=== PATIENT | male | born 1985 | race Two or more races ===

== ENCOUNTER 2020-08-19 15:12 | Emergency (ER) | payer OTHER ==
[~2020-08-19] VITALS: Ht 177.8 cm; Wt 98.0 kg
[2020-08-19] MEDS ORDERED: VANCOMYCIN 1 G PREMIX 200 ML IV SCH (16:15)
[2020-08-19 17:08] LABS: BASOPHILS % 0.5 % (0.0-2.0); EOSINOPHILS % 0.2 % (0.0-5.0); HEMATOCRIT. 38.3 % (42.0-52.0); HEMOGLOBIN. 13.2 g/dL (14.0-18.0); LYMPHOCYTES % 25.3 % (20.0-50.0); MEAN CORPUSCULAR HEMOGLOBIN 29.3 pg (28.0-32.0); MEAN CORPUSCULAR VOLUME 85.2 fL (80.0-94.0); MEAN PLATELET VOLUME 6.5 fl (7.4-10.4); MONOCYTES % 5.5 % (2.0-8.0); NEUTROPHILS % 68.5 % (40.0-76.0); PLATELET 221 x1000/uL (130-400); RED CELL DISTRIBUTION WIDTH 13.7 % (11.6-14.6)
[2020-08-19 17:10] LABS: CHLORIDE 104 mEq/L (98-107)
[2020-08-19] MEDS: AMPICILLIN SOD/SULBACTAM NA 1.5 G in SODIUM CHLORIDE 0.9% 50 ML IV SCH ×2 (19:32→23:41)
[2020-08-19] MEDS ORDERED: TETANUS, DIPHTHERIA, PERTUSSIS VAC/PF 0.5ML (>7YR OLD) IM ONE (22:30)
[2020-08-20] MEDS ORDERED: DIVALPROEX SODIUM 500MG DR TABLET PO ONE
[2020-08-20] MEDS: AMPICILLIN SOD/SULBACTAM NA 1.5 G in SODIUM CHLORIDE 0.9% 50 ML IV SCH ×3 (04:29→13:30)
[2020-08-20] MEDS: METOPROLOL TARTRATE 50MG TABLET PO SCH (09:52)
[2020-08-20] MEDS: VANCOMYCIN 1 G PREMIX 200 ML IV SCH (18:09)
[2020-08-21] MEDS ORDERED: KETOROLAC 30MG/ML VIAL IV STA (00:14)
[2020-08-21] MEDS: VANCOMYCIN 1 G PREMIX 200 ML IV SCH ×3 (01:00→17:07)
[2020-08-21] MEDS: AMPICILLIN SOD/SULBACTAM NA 1.5 G in SODIUM CHLORIDE 0.9% 50 ML IV SCH ×4 (02:00→20:00)
[2020-08-21] MEDS: METOPROLOL TARTRATE 50MG TABLET PO SCH (08:01)
[2020-08-21] MEDS ORDERED: DIVA500T3 MT (16:59)
[2020-08-21] MEDS ORDERED: LABETALOL 5MG/ML SYR 20 MG/4 ML SYRINGE IV ONE (20:15)
[2020-08-21] MEDS ORDERED: QUETIAPINE FUMARATE 50MG TABLET PO SCH (20:15)
[2020-08-21] MEDS ORDERED: TRAZODONE HCL 50MG TABLET PO SCH (21:00)
[2020-08-21] MEDS: AMPICILLIN SOD/SULBACTAM NA 3 G in SODIUM CHLORIDE 0.9% 100 ML IV SCH (21:15)
[2020-08-21] MEDS: DIVALPROEX SODIUM 500MG DR TABLET PO SCH (23:27)
[2020-08-22] MEDS: VANCOMYCIN 1 G PREMIX 200 ML IV SCH ×3 (01:35→23:00)
[2020-08-22] MEDS: AMPICILLIN SOD/SULBACTAM NA 3 G in SODIUM CHLORIDE 0.9% 100 ML IV SCH ×3 (03:46→18:07)
[2020-08-22 07:27] LABS: CHLORIDE 102 mEq/L (98-107)
[2020-08-22] MEDS: DIVALPROEX SODIUM 500MG DR TABLET PO SCH ×2 (09:00→16:31)
[2020-08-22] MEDS: METOPROLOL TARTRATE 50MG TABLET PO SCH (09:14)
[2020-08-22 18:21] LABS: CLARITY URINE CLEAR (CLEAR); COLOR URINE YELLOW (YELLOW); KETONES URINE NEGATIVE (NEGATIVE); LEUKOCYTE ESTERASE URINE NEGATIVE (NEGATIVE); NITRITE URINE NEGATIVE (NEGATIVE); OCCULT BLOOD URINE NEGATIVE (NEGATIVE); PROTEIN URINE NEGATIVE (NEGATIVE); SPECIFIC GRAVITY URINE 1.017 (1.005-1.030)
[2020-08-22 18:38] LABS: *BARBITURATES SCREEN URINE NEGATIVE (NEGATIVE); *BENZODIAZEPINES SCREEN URINE NEGATIVE (NEGATIVE); *COCAINE SCREEN URINE NEGATIVE (NEGATIVE)
[2020-08-22 18:39] LABS: *AMPHETAMINES SCREEN URINE NEGATIVE (NEGATIVE); CANNABINOID URINE SCREEN NEGATIVE (NEGATIVE); METHADONE URINE SCREEN NEGATIVE (NEGATIVE); OPIATES URINE SCREEN NEGATIVE (NEGATIVE); PHENCYCLIDINE URINE SCREEN NEGATIVE (NEGATIVE)
[2020-08-22] MEDS ORDERED: OXYCODONE HCL/ACETAMINOPHEN 5/325MG TABLET PO ONE (19:45)
[2020-08-22] MEDS: OLANZAPINE 5MG TABLET PO SCH (20:06)
[2020-08-23] MEDS: VANCOMYCIN 1 G PREMIX 200 ML IV SCH ×3 (01:00→14:00)
[2020-08-23] MEDS: QUETIAPINE FUMARATE 50MG TABLET PO SCH (01:00)
[2020-08-23] MEDS: TRAZODONE HCL 50MG TABLET PO SCH (01:00)
[2020-08-23] MEDS: AMPICILLIN SOD/SULBACTAM NA 3 G in SODIUM CHLORIDE 0.9% 100 ML IV SCH ×3 (01:15→13:30)
[2020-08-23] MEDS: DIVALPROEX SODIUM 500MG DR TABLET PO SCH ×3 (06:00→14:00)
[2020-08-23] MEDS: METOPROLOL TARTRATE 50MG TABLET PO SCH (13:34)
[2020-08-24] MEDS: OLANZAPINE 5MG TABLET PO SCH ×2 (00:22→19:45)
[2020-08-24] MEDS: AMPICILLIN SOD/SULBACTAM NA 3 G in SODIUM CHLORIDE 0.9% 100 ML IV SCH ×6 (00:22→19:00)
[2020-08-24] MEDS: DIVALPROEX SODIUM 500MG DR TABLET PO SCH ×4 (00:22→22:19)
[2020-08-24] MEDS: VANCOMYCIN 1 G PREMIX 200 ML IV SCH ×3 (06:05→22:22)
[2020-08-24] MEDS: METOPROLOL TARTRATE 50MG TABLET PO SCH (09:30)
[2020-08-24] MEDS: TRAZODONE HCL 50MG TABLET PO SCH (20:41)
[2020-08-24] MEDS: QUETIAPINE FUMARATE 50MG TABLET PO SCH (20:41)
[2020-08-25] MEDS: AMPICILLIN SOD/SULBACTAM NA 3 G in SODIUM CHLORIDE 0.9% 100 ML IV SCH ×4 (00:50→20:29)
[2020-08-25] MEDS ORDERED: QUETIAPINE FUMARATE 50MG TABLET PO ONE (03:45)
[2020-08-25] MEDS: DIVALPROEX SODIUM 500MG DR TABLET PO SCH ×3 (06:00→22:21)
[2020-08-25] MEDS: METOPROLOL TARTRATE 50MG TABLET PO SCH (09:47)
[2020-08-25] MEDS ORDERED: VANCOMYCIN 1 G PREMIX 200 ML IV SCH (10:15)
[2020-08-25] MEDS: VANCOMYCIN 1 G PREMIX 200 ML IV SCH ×2 (10:38→18:43)
[2020-08-25 17:27] LABS: CHLORIDE 107 mEq/L (98-107)
[2020-08-25] MEDS: QUETIAPINE FUMARATE 50MG TABLET PO SCH ×2 (21:00→22:21)
[2020-08-25] MEDS: TRAZODONE HCL 50MG TABLET PO SCH (22:21)
[2020-08-26] MEDS: VANCOMYCIN 1 G PREMIX 200 ML IV SCH ×3 (02:00→19:13)
[2020-08-26] MEDS: DIVALPROEX SODIUM 500MG DR TABLET PO SCH ×3 (06:47→22:57)
[2020-08-26] MEDS: AMPICILLIN SOD/SULBACTAM NA 3 G in SODIUM CHLORIDE 0.9% 100 ML IV SCH ×5 (06:47→18:26)
[2020-08-26] MEDS: METOPROLOL TARTRATE 50MG TABLET PO SCH (09:53)
[2020-08-26 15:54] LABS: CHLORIDE 106 mEq/L (98-107)
[2020-08-26] MEDS ORDERED: ACETAMINOPHEN 325MG TABLET PO ONE (17:15)
[2020-08-26] MEDS: TRAZODONE HCL 50MG TABLET PO SCH (22:57)
[2020-08-26] MEDS: QUETIAPINE FUMARATE 50MG TABLET PO SCH (22:57)
[2020-08-27] MEDS: AMPICILLIN SOD/SULBACTAM NA 3 G in SODIUM CHLORIDE 0.9% 100 ML IV SCH ×2 (01:28→22:00)
[2020-08-27] MEDS ORDERED: MORPHINE SULFATE 4 MG/ML CPJ (NOT FOR IM USE) IV ONE ×2 (11:30→20:00)
[2020-08-27] MEDS: DIVALPROEX SODIUM 500MG DR TABLET PO SCH (15:30)
[2020-08-27] MEDS: VANCOMYCIN 1 G PREMIX 200 ML IV SCH ×2 (15:30→20:00)
[2020-08-27] MEDS: TRAZODONE HCL 50MG TABLET PO SCH (21:00)
[2020-08-27] MEDS: QUETIAPINE FUMARATE 50MG TABLET PO SCH (22:45)
[2020-08-28] MEDS ORDERED: BACITRACIN ZINC OINT UDPKT TOP ONE (03:54)
[2020-08-28] MEDS ORDERED: BACITRACIN ZINC OINT UDPKT TOP NR (04:00)
[2020-08-28] MEDS ORDERED: VANCOMYCIN 1 G PREMIX 200 ML IV SCH ×2 (07:45→09:00)
[2020-08-28] MEDS: METOPROLOL TARTRATE 50MG TABLET PO SCH (11:13)
[2020-08-28] MEDS: DIVALPROEX SODIUM 500MG DR TABLET PO SCH ×2 (11:14→11:17)
[2020-08-28] MEDS: VANCOMYCIN 1 G PREMIX 200 ML IV SCH (11:15)
[2020-08-28] MEDS: AMPICILLIN SOD/SULBACTAM NA 3 G in SODIUM CHLORIDE 0.9% 100 ML IV SCH (11:17)
[2020-08-28 12:10] VITALS: BP 146/99
== END 2020-08-28 12:26 | disposition left against medical advice (07) ==
LOC: ER 15:12 → CANBEDREQ 08-20 06:16 → ER 08-28 12:26
DX: R45.851 Suicidal ideations (principal); Z86.59 Personal history of other mental and behavioral disorders
CPT/HCPCS: 36415; 73140; 80053; 85025; 90471; 90715; 96365; 96366; 96368; 96375; 99285; J0295; J1885; J2270; J3370; J3490; J7050; Z7610